=== PATIENT | female | born 1965 | race Caucasian/White ===

== ENCOUNTER 2016-11-27 11:04 | Day surgery (SDC) | payer OTHER ==
--- NOTE | 2016-11-17 14:36 | GHP ---
[f rep st] PREOP HISTORY AND PHYSICAL PLANNED PROCEDURE: Cold knife conization. INDICATION: Endocervical adenocarcinoma in situ. HISTORY OF PRESENT ILLNESS: Patient is a 51-year-old 3, para 2-0-1-2 who has a long history of abnormal Pap smears. She has had abnormal Paps for the last 13 years. She had a colposcopy done 13 years ago but has been followed with repeat Pap smears. Her most recent Pap smear in 09/2016 was atypical glandular cells. She underwent an endometrial biopsy which was negative and a colposcopy which on appearance the cervix appeared to have no lesions but a random biopsy of the cervix showed endocervical adenocarcinoma in situ. Endocervical curettage was benign. Management options have been extensively reviewed with the patient and her and patient was hoping to proceed directly to a hysterectomy as she is anxious because of the longstanding abnormal Paps and this carcinoma in situ diagnosis. We discussed the recommendations of proceeding with a cold knife conization and as long as there is no invasive carcinoma we will proceed with a hysterectomy. If there is invasive carcinoma, patient will follow up with gynecological oncologist for consultation and a radical hysterectomy. Risks and benefits of this procedure have been extensively reviewed with the patient and her , and she has been properly consented. MEDICAL HISTORY: Significant for cervical dysplasia; alcohol abuse, patient has been sober since 2011; anxiety and depression, bipolar disease. MEDICATIONS: Calcium, ginkgo biloba, glucosamine, vitamin B complex. SURGICAL HISTORY: ACL repair, termination of . ALLERGIES: No known drug allergies. SOCIAL HISTORY: The patient is . She denies tobacco, alcohol or drug use. Patient does have a history of alcohol abuse and has been sober since 2011. FAMILY MEDICAL HISTORY: Noncontributory. 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 Patient has been menopausal since 43. She is a 3, para 2-0-1-2. In 1986, she had a voluntary termination of . In 2003, she had a spontaneous vaginal delivery. In 2005, she had a spontaneous vaginal delivery. Both pregnancies were uncomplicated. The patient does have a longstanding history of abnormal Pap smears and HPV positive. Her most recent Pap smear with atypical glandular endocervical cells. Patient's endometrial biopsy was negative and the colposcopy showed adenocarcinoma in situ of the endocervical cells. PHYSICAL EXAM: VITAL SIGNS: Patient's vital signs are stable. GENERAL APPEARANCE: Alert and oriented x3. HEART: Heart rate is regularly regular. LUNGS: Clear to auscultation bilaterally. ABDOMEN: Soft, nondistended, nontender. EXTREMITIES: Reveal no calf tenderness or edema. PELVIC: Reveals a mobile mid position uterus with no adnexal masses. ASSESSMENT AND PLAN: A 51-year-old, 3, para 2-0-1-2, postmenopausal woman with an endocervical adenocarcinoma in situ. Patient will undergo a cold knife conization and then a hysterectomy either with gynecological oncologist if there is invasive cancer or us if it is still just adenocarcinoma in situ. The patient has been properly consented after risks and benefits were extensively reviewed. /[id number]/MODL MTDD
[~2016-11-27 11:04] MED LIST: LIDOCAINE 1% 30 ML SDV ONE; MONSELS-FERRIC SUBSULFATE 8 GM SDV TP ONE; SILVER NITRATE APPLICATOR 1 APPL TP ONE; VASOPRESSIN 20 UNIT/ML VIAL ONE
[2016-11-27] MEDS ORDERED: fentaNYL 100 MCG/2 ML INJ ONE ×2 (11:46→13:13)
[2016-11-27] MEDS ORDERED: PROPOFOL 200 MG/20 ML VIAL ONE (11:48)
[2016-11-27] MEDS ORDERED: LIDOCAINE 1% 2 ML INJ ONE (11:54)
[2016-11-27] MEDS ORDERED: MIDAZOLAM 2 MG/2 ML VIAL ONE (11:54)
[2016-11-27] MEDS ORDERED: SCOPOLAMINE HYDROBROMIDE 1.5 MG PATCH TD ONE (11:55)
[2016-11-27] MEDS ORDERED: ACETIC ACID IRR SOLN 0.25% 1,000 ML BTL IRR ONE (12:02)
--- NOTE | 2016-11-27 12:56 | POSTOPPROG ---
Post Op Note Date of Operation: 11/27/16 Surgeon: Mouna Galindo Anesthesia: LMA Pre-op Diagnosis: cervical adenocarcinoma in situ Post-op Diagnosis: same Procedure: cold knife conization with endocervical currettage Inf/Abcess present in the surg proc area at time of surgery?: No EBL: Minimal Specimen(s): cone specimen of cervix. endocervical currettings.
[2016-11-27] MEDS ORDERED: KETOROLAC 30 MG/1 ML SDV ONE (13:13)
--- NOTE | 2016-11-27 13:43 | GOP ---
[f rep st] OPERATIVE REPORT DATE OF OPERATION: 11/27/2016 SURGEON: Mouna Galindo DO ANESTHESIA: General with LMA. PREOPERATIVE DIAGNOSIS: Postmenopausal with endocervical adenocarcinoma in situ. POSTOPERATIVE DIAGNOSIS: Postmenopausal with endocervical adenocarcinoma in situ. PROCEDURE PERFORMED: Cold knife conization. FINDINGS: Mobile anteverted uterus with no adnexal masses. SPECIMENS: Conization specimen of the cervix, endocervical curettings. ESTIMATED BLOOD LOSS: Minimal. INDICATIONS: Patient is a 51-year-old 3, para 2-0-1-2, who has a long history of abnormal P ap smears. She had an abnormal Paps for the last 13 years. She had a colposcopy done 13 years ago, but has only been followed with repeat Pap smear since then. Her most recent Pap smear in 09/2016 w as atypical glandular cells. She underwent an endometrial biopsy, which was negative and a colposco py which, on appearance, had no lesions where the biopsy was performed, which showed endocervical ad enocarcinoma in situ. Endocervical curettage was benign. Management options were reviewed with the patient. Patient had hoped to proceed directly to hysterectomy; however, because if it is invasive carcinoma, patient will need to have surgery performed by gynecological oncologist. Decision was m yovana to proceed with a cold knife conization first. Risks and benefits of the procedure have been re viewed with the patient. The patient was properly consented DESCRIPTION OF PROCEDURE: Patient taken to the operating room with intravenous fluids in place. Kia ramirez was then placed on the operating table in the dorsal supine position where general anesthesia with LMA was obtained. She was then repositioned into the dorsal lithotomy position with the Yellofin s tirrups, and prepped and draped in the normal sterile fashion. A pelvic exam was performed. A mobile anteverted uterus was noted. Uterus was noted to be small. A right angle retractor was placed anteriorly and posteriorly, and a single-tooth tenaculum was used to grasp the cervix. An 0-Vicryl stitch was used to suture ligate the cervical branches of the [place] rine arteries from the 2 to 5 o'clock position, and the 8 to 10 o'clock position. Following that, a knife on an angled handle was then used to cone out a specimen of the cervix and curved Santamaria's were used to finish coring out the specimen. As the specimen was handed off, a working curette and then a Cytobrush were then used to perform an endocervical curettage. Bleeding was noted to be minimal. Bottle of ball cautery was then used to cauterize the cervical stump and base of conization, and M onsel solution was then applied. Hemostasis was achieved. The strings for the cervical stay sutures were then trimmed, instruments were then removed from the patient's vagina. She was then returned to the dorsal supine position where she was easily awoken f rom anesthesia. Sponge count was correct. The patient was transported to recovery room in stable c ondition. /[id number]/MODL
== END 2016-11-27 14:28 | disposition home or self-care (01) ==
LOC: FSGY 11:04
PROVIDERS: ATTEND Obstetrics & Gynecology
DX: D06.9 Carcinoma in situ of cervix, unspecified (principal); F31.9 Bipolar disorder, unspecified; F41.9 Anxiety disorder, unspecified; Z78.0 Asymptomatic menopausal state
CPT/HCPCS: J1885; J2250; J2704; J3010

== ENCOUNTER 2016-12-24 05:57 | Observation (INO) | payer OTHER ==
--- NOTE | 2016-12-16 19:35 | GHP ---
[f rep st] PREOP HISTORY AND PHYSICAL DATE OF ADMISSION: 12/24/2016 DATE OF PLANNED PROCEDURE: 12/24/2016 PLANNED PROCEDURE: Total laparoscopic hysterectomy with bilateral salpingo-oophorectomy. INDICATIONS: Patient is a 51-year-old, 3, para 2-0-1-2, who has a longstanding history of a bnormal Pap smears. She has had abnormal Paps for the last 13 years. She had a colposcopy done 13 years ago and has only been followed with repeat Pap smears since then. Her most recent Pap smear w as 09/2016 which was atypical glandular cells. She underwent an endometrial biopsy which was negati ve and a colposcopy, which on appearance, had no lesions. A blind biopsy was performed which showed endocervical adenocarcinoma in situ. Endocervical curettage was benign. Management options were reviewed extensively with the patient. Patient initially wanted to proceed directly with a total laparoscopic hysterectomy; however, per the recommendation of a gynecological oncologist, they recommend we proceed with a cold knife conization and follow up with a hysterectomy either done by us in the office if it is not invasive cancer or with gynecological oncologist down in [place] if it is invasive cancer. She underwent a cold knife conization on 11/27/2016. The pathology for that showed extensive change s compatible with prior biopsy site, reactive endocervical epithelial changes. No residual glandular dysplasia were identified. Surgical margins were negative. Endocervical curettage of the remainin g cervix was negative. We had an extensive discussion about management options. Due to the discord ance between the biopsy and the cold knife conization and a significant anxiety over a long prolonge d history of abnormal Pap smears, patient has elected to proceed with the total laparoscopic hystere ctomy with bilateral salpingo-oophorectomy. Patient has been menopausal since her 40s and so is com fortable having her ovaries removed. PATIENT'S MEDICAL HISTORY: Cervical dysplasia, history of alcohol abuse. Patient has been sober si 2011, anxiety, depression, bipolar disease. MEDICATIONS: Calcium, gingko biloba, glucosamine, vitamin B6 complex. SURGICAL HISTORY: ACL repair, termination of , cold knife conization of the cervix. ALLERGIES: No known drug allergies. SOCIAL HISTORY: Patient is . She denies tobacco, alcohol, or drug use. Patient has a histo ry of alcohol abuse and has been sober since 2011. FAMILY MEDICAL HISTORY: Noncontributory. 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 The patient went through menopause at age 43. She is a 3, para 2-0-1-2. In 1986, she had a voluntary termination of . In 2003, she had a spontaneo us vaginal delivery. In 2007, she had a spontaneous vaginal delivery. Both pregnancies were uncomp licated. Patient does have a longstanding history of abnormal Pap smears and is HPV positive. Her most recent Pap smear was atypical glandular endocervical cells. An endometrial biopsy was negative . A colposcopy showed adenocarcinoma in situ of the cervix, and the cold knife conization was unrem arkable and negative. REVIEW OF SYSTEMS: 10 point review of systems is negative. PHYSICAL EXAM: VITAL SIGNS: Patient's vital signs are stable. Her general appearance is alert and oriented x3. Her psych exam is appropriate affect and interactions. NECK: Supple, mobile and her thyroid is normal size and midline. HEART: Is regular regular. LUNGS: Clear to auscultation bilat erally. ABDOMEN: Soft, nondistended, nontender. EXTREMITIES: Reveal no calf tenderness or edema. PELVIC: Reveals a mobile, midposition uterus with no adnexal masses. IMAGING: Pelvic ultrasound was not obtained. ASSESSMENT AND PLAN: 51-year-old, 3, para 2-0-1-2, who has a longstanding history of abnorm al Pap smears. She had endocervical adenocarcinoma in situ on biopsy and a negative cold knife gardenia zation. Will proceed with a total laparoscopic hysterectomy with bilateral salpingo-oophorectomy. Risks and benefits extensively have been reviewed with the patient including risks of bleeding, infe ction, damage to the bowel, bladder, or major blood vessels, risk of poking a hole in something that we should not, potential need for additional surgeries. /[id number]/MODL
[2016-12-18 09:35] LABS: ADD DIFF? NO; ADD MORPH? NO; ADD SCAN? NO; ATYPICAL LYMPHOCYTE FLAG 0 (0-99); FRAGMENT RBC FLAG 0 (0-99); HEMOGLOBIN 14.2 g/dL (12.6-16.3); LEFT SHIFT FLG 0 (0-99); LIPEMIA HEMOLYSIS FLAG 90 (0-99); MEAN CELL HEMOGLOBIN 31.6 pg (27.9-34.1); MEAN CELL HEMOGLOBIN CONCENTR. 33.8 g/dL (32.4-36.7); MEAN CELL VOLUME 93.5 fL (81.5-99.8); MEAN PLATELET VOLUME 9.8 fL (8.7-11.7); PLATELET CLUMPS FLAG 10 (0-99); PLATELET COUNT 206 10^3/uL (150-400); RED BLOOD CELL COUNT 4.49 10^6/uL (4.18-5.33)
[2016-12-24] MEDS ORDERED: LIDOCAINE 1% 2 ML INJ ONE (06:36)
[2016-12-24] MEDS ORDERED: LR 1,000 ML IV ONE (06:59)
[2016-12-24] MEDS ORDERED: LIDOCAINE 1% 5 ML SDV ID PRN (06:59)
[2016-12-24] MEDS ORDERED: BUPIVACAINE 0.5% 30 ML SDV ONE (06:59)
[2016-12-24] MEDS ORDERED: SCOPOLAMINE HYDROBROMIDE 1.5 MG PATCH TD ONE (07:00)
[2016-12-24] MEDS ORDERED: ceFAZolin 2 GM/DEXTROSE 100 ML IV ONE (07:00)
[2016-12-24] MEDS ORDERED: fentaNYL 100 MCG/2 ML INJ ONE ×6 (07:03→12:44)
[2016-12-24] MEDS ORDERED: ROCURONIUM 50 MG/5 ML VIAL ONE ×2 (07:03→09:55)
[2016-12-24] MEDS ORDERED: LIDOCAINE 2% 5 ML SDV ONE (07:03)
[2016-12-24] MEDS ORDERED: DEXAMETHASONE 4 MG/ML VIAL ONE ×2 (07:03)
[2016-12-24] MEDS ORDERED: PROPOFOL/EMULSION 500 MG/50 ML BOTTLE IV ONE ×2 (07:03→09:13)
[2016-12-24] MEDS ORDERED: MIDAZOLAM 2 MG/2 ML VIAL ONE (07:08)
[2016-12-24] MEDS ORDERED: ONDANSETRON 4 MG/2 ML VIAL ONE (08:36)
[2016-12-24] MEDS ORDERED: KETOROLAC 30 MG/1 ML SDV ONE (08:43)
[2016-12-24] MEDS ORDERED: METHYLENE BLUE 0.5% 50 MG/10 ML AMP ONE (09:24)
[2016-12-24] MEDS ORDERED: NEOSTIGMINE METHYLSULFATE 5 MG/5 ML SYR ONE (10:49)
[2016-12-24] MEDS ORDERED: GLYCOPYRROLATE 0.2 MG/1 ML VIAL ONE (10:55)
--- NOTE | 2016-12-24 11:09 | GCON ---
[f rep st] CONSULTATION DATE OF CONSULTATION: 12/24/2016 INTRAOPERATIVE CONSULTATION I have been asked by Dr. Galindo to have an intraoperative consultation. This lady has had a hysterect amrit laparoscopically and things went well, and on the closure of the vaginal cuff with a scaled sutu re, it was noted that there was 2 sutures that had gone through the bladder and it appeared that the y were more submucosal and were close to luminal, so those sutures were taken down. At the end of t he procedure, there was no rent or ischemic area of the bladder visually by cystoscopy, and then the y reclosed the vaginal cuff, and inspection revealed no significant abnormality of the bladder linin g. They did fill the bladder under gentle pressure and there was no leakage intraabdominal and we h mary recommended that she continue her Piña catheter for approximately 5 days prior to removing it. At the present time, there was no suggestion of a hole or potential for fistula formation or ischem ia. I had outlined the options as we could try to put a suture closure of the suture hole but that may create more trauma to the bladder which really appeared quite normal. So at the present time, t he plans are 5 days of catheterization and continued routine postoperative care. /[id number]/MODL
[2016-12-24] MEDS ORDERED: traMADol 50 MG TAB ONE (12:13)
[2016-12-24] MEDS ORDERED: HYDROCODONE/APAP 5/325 TAB PO PRN (12:22)
[2016-12-24] MEDS ORDERED: ONDANSETRON 4 MG/2 ML VIAL IVP PRN (12:22)
[2016-12-24] MEDS ORDERED: LR 1,000 ML IV SCH (12:30)
[2016-12-24] MEDS: HYDROmorphONE/DILAUDID 1 MG/ML SYR IVP PRN ×3 (14:30→19:55)
[2016-12-24] MEDS: KETOROLAC 30 MG/1 ML SDV IVP SCH ×2 (15:18→21:17)
[2016-12-24] MEDS ORDERED: KETOROLAC 30 MG/1 ML SDV IVP SCH (18:00)
--- NOTE | 2016-12-24 20:01 | SOAPPROG ---
SOAP Progress Note Assessment/Plan: Assessment: pod# 0 s/p TLH with cystoscopy and removal of suture in bladder Plan: routine post operative care 12/24/16 19:59 Subjective: patient is doing much better. pain is controlled. no vaginal bleeding. voiding copious amounts by hernandez. tolerating diet. using heating pad for back and ice for incision. hasnt sat up in a chair yet. Objective: Vital Signs Temp Pulse Resp BP Pulse Ox 35.6 C L 73 16 106/67 93 12/24/16 16:00 12/24/16 16:00 12/24/16 16:00 12/24/16 16:00 12/24/16 15:00 Laboratory Results 12/18/16 09:21 12/23/16 12/24/16 12/25/16 05:59 05:59 05:59 Intake Total 4100 Output Total 1660 Balance 2440 Physical Exam - Physical Exam General Appearance: WD/WN, alert, no apparent distress Respiratory: chest non-tender, lungs clear, normal breath sounds Cardiac/Chest: normal peripheral pulses, regular rate, rhythm Abdomen: normal bowel sounds, non-tender, soft Skin: normal color, warm/dry Extremities: normal range of motion, non-tender, normal inspection, normal capillary refill Neuro/Psych: no motor/sensory deficits, alert, normal mood/affect, oriented x 3 ICD10 Worksheet Patient Problems: Problems Problem Status Onset S/P hysterectomy Acute
--- NOTE | 2016-12-24 21:25 | GOP ---
[f rep st] OPERATIVE REPORT DATE OF OPERATION: 12/24/2016 SURGEON: Mouna Galindo DO CASINO RUNNER: Lori Lacey MD ANESTHESIA: General endotracheal tube anesthesia Josselin Vargas M.D. PREOPERATIVE DIAGNOSIS: History of endocervical adenocarcinoma in situ on biopsy. Negative cold knife conization. Presents for definitive therapy with hysterectomy. POSTOPERATIVE DIAGNOSIS: History of endocervical adenocarcinoma in situ on biopsy. Negative cold knife conization. Presents for definitive therapy with hysterectomy plus repair of incidental cystotomy caused by suture in bladder. Suture was removed. PROCEDURE PERFORMED: Total laparoscopic hysterectomy with bilateral salpingo- oophorectomy and cystotomy. FINDINGS: 1. Mobile, small midposition uterus with no adnexal masses. 2. Laparoscopic findings: Very small uterus with small ovaries and fallopian tubes. 3. Intraoperative cystoscopy: Bilateral ureteral jets flowing, V-Loc suture noted in the bladder which was removed. 1. Cystotomy performed after suture removal. Bilateral ureteral jets flowing. No cystotomy noted. 4. SPECIMENS: Ovaries, uterus and tubes. ESTIMATED BLOOD LOSS: 50 cc. INDICATIONS: The patient is a 51-year-old 3 para 2-0-1-2 who has a longstanding history of abnormal Pap smears. She had a history of abnormal Paps for 13 years. She has only had 2 colposcopies during that time. She had a Pap smear in 10/13/2015 which showed atypical glandular cells. She had an endometrial biopsy which was negative and a colposcopy which showed endocervical adenocarcinoma in situ. Cold knife conization was performed which was unremarkable. The endocervical curettage following the cold knife conization was negative. Because of the diagnosis of adenocarcinoma in situ, decision was made to proceed with a total laparoscopic hysterectomy with bilateral salpingectomy. Risks and benefits of the procedure were reviewed extensively with the patient. The patient has been properly consented. DESCRIPTION OF PROCEDURE: Patient was taken to the operating room with intravenous fluids in place. She was then placed on the operating room table in the dorsal supine position where general anesthesia was obtained. She was then repositioned into the dorsal lithotomy position with the Yellofin stirrups and prepped and draped in the normal sterile fashion. Exam under anesthesia revealed a mobile, small, mid position uterus with no adnexal masses. A speculum was then placed in the patient's vagina. A single-tooth tenaculum was used to grasp the anterior lip of the cervix, and the cervix was then dilated. Stay sutures were used on the lateral aspect of the cervix due to the small nature of the cervix. The cervix was then dilated and sounded to 6 cm. The MILADYS uterine manipulator was applied. The balloons were tested and found to be intact. The MILADYS uterine manipulator was then inserted and the balloon was inflated and then the uterus was able to be mobilized. Attention was then turned to the patient's abdomen where a 5 mm skin incision was then made in the umbilicus. The laparoscope was then advanced into the patient's abdomen under direct visualization and the abdomen was then insufflated with CO2 gas until an adequate pneumoperitoneum was achieved. The area underneath the trocar insertion site was found to be unremarkable. A 2nd 5 mm skin incision was then made in the patient's right lower quadrant and the trocar was advanced into the patient's abdomen under direct visualization. A 10 mm skin incision was then made in the patient's left lower quadrant and the trocar was then advanced into the patient's abdomen under direct visualization. The patient was then placed in Trendelenburg. The uterus was easily mobilized and was noted to be very small. Ovaries, uterus and tubes were unremarkable. The left fallopian tube was then grasped and followed out to the fimbriated end. Bilateral ureters were identified and peristalsing. The left salpingectomy and oophorectomy were performed with the LigaSure. The anterior and posterior leaflet of the broad ligament were then clamped and transected with the LigaSure. The uterine arteries were skeletonized, clamped, cauterized , and transected. The bladder flap was created anteriorly. Attention was then turned to the patient's right side. The ovaries and tubes on the right side were unremarkable. The right fallopian tube was then grasped at the fimbriated end and a salpingectomy and oophorectomy were then performed. The anterior and posterior leaflet of the broad ligament were then clamped and transected and the uterine arteries were then skeletonized. The bladder flap was created anteriorly. The colpotomy ring was then easily palpated. Monopolar hook was then used to perform the colpotomy. This was done without difficulty. The uterus was then withdrawn through the vagina and a sponge on a stick in a glove was then inserted into the vagina to maintain pneumoperitoneum. The specimen was then handed off. The bilateral ureters were noted to be peristalsing. The V-Loc suture was then used in a running fashion to close the vaginal cuff. The additional edge of the suture was used to go back toward the midline after reaching the left cuff. After completion of that it was noted that the ureter was possibly kinked so a cystotomy was performed. Bilateral ureteral jets were noted. However, an incidental finding of a suture through the bladder was noted. We did go back laparoscopically and then undo the suture line. Dr. Yamil Miller, urologist, was called in for an intraoperative consult and he observed us doing that. The suture was then removed without difficulty. The cystoscopy was again performed and the suture was noted to be removed. We then closed the vaginal cuff again with a running V-Loc suture. Cystotomy was performed at that time and no suture was noted to be within the vagina or within the bladder and ureteral jets were noted to be flowing. There was no urine noted to be leaking through any cystotomy in the bladder into the abdominal cavity and once the suture was removed, there was no hole visualized in the bladder. The Piña catheter was then replaced in through the urethra into the bladder and a large amount of urine was drained out. Bilateral ureteral peristalsis was noted. The vaginal cuff was noted to be intact and pedicles were hemostatic. The 10 mm trocar was then withdrawn and the fascial closure device was inserted and 0 Vicryl stitch was used to close the fascia. The remaining trocars were then removed after cO2 gas was expressed. The skin incisions were then closed with 4-0 Monocryl in a subcuticular fashion. Speculum exam was performed and the vaginal cuff was noted to be intact. The patient was then returned to the dorsal supine position where she was easily awoken from anesthesia. The sponge count was correct. The patient was transported to the recovery room in stable condition. INTRAOPERATIVE CONSULT: Dr. Yamil Miller. /[id number]/MODL MTDD
[2016-12-25] MEDS: KETOROLAC 30 MG/1 ML SDV IVP SCH ×2 (03:33→10:18)
[2016-12-25 04:21] VITALS: O2SAT 95
[2016-12-25 11:00] VITALS: BP 108/66; PULSE 58; RESP 20; TEMP 97.9
[2016-12-25] MEDS ORDERED: NITROFURANTOIN 50 MG CAP PO SCH (12:15)
[2016-12-25] MEDS ORDERED: IBUPROFEN 600 MG TAB PO SCH (12:25)
== END 2016-12-25 15:30 | disposition home or self-care (01) ==
LOC: FSGY 05:57 → F3E 12:22 → FOB 13:55
PROVIDERS: ADMIT Obstetrics & Gynecology; ATTEND Obstetrics & Gynecology
PROC: 0UT9FZZ Resection of Uterus, Via Natural or Artificial Opening With Percutaneous Endoscopic Assistance (ICD-10-PCS; principal; 2016-12-24 07:15)
PROC: 0UT7FZZ Resection of Bilateral Fallopian Tubes, Via Natural or Artificial Opening With Percutaneous Endoscopic Assistance (ICD-10-PCS; principal; 2016-12-24 07:15)
DX: D06.0 Carcinoma in situ of endocervix (principal); F31.9 Bipolar disorder, unspecified; F41.8 Other specified anxiety disorders; F10.21 Alcohol dependence, in remission
CPT/HCPCS: 58571; G0378; J0690; J1100; J1170; J1885; J2250; J2405; J2704; J2710; J3010; Q9968

== ENCOUNTER → 2017-07-01 | Outpatient (CLI) | payer OTHER | LOC: CIMAGING 10:55 | PROVIDERS: ATTEND Family Medicine | DX: Z12.31 Encounter for screening mammogram for malignant neoplasm of breast (principal) | CPT/HCPCS: G0202 ==

== ENCOUNTER → 2018-09-02 | Outpatient (CLI) | payer OTHER | LOC: CIMAGING 10:51 | PROVIDERS: ATTEND Family Medicine | DX: Z12.31 Encounter for screening mammogram for malignant neoplasm of breast (principal) ==